=== PATIENT | female | born 1955 | race African-American/Black ===

== ENCOUNTER 2018-09-11 08:39 | Inpatient (IN) | payer OTHER ==
[2018-09-11] MEDS: HYDROCODONE/APAP (5/325) TAB PO (09:15)
[2018-09-11] MEDS: ONDANSETRON 4 MG INJ IV (10:58)
[2018-09-11] MEDS: morphine 4 MG/ML VIAL IV ×3 (10:58→23:39)
[2018-09-11 11:03] LABS: ADD MAN DIFF? NO
[2018-09-11 11:04] LABS: WHITE BLOOD COUNT 12.2 10^3/ul (4.8-10.8)
[2018-09-11 11:04] LABS: BASOPHILS % 0.3 % (0.0-2.0); HEMATOCRIT 39.8 % (37.0-47.0); HEMOGLOBIN 12.5 g/dl (12.0-16.0); LYMPHOCYTES # 2.7 10^3/ul (0.8-2.9); LYMPHOCYTES % 21.9 % (15.0-51.0); MEAN CORPUSCULAR HEMOGLOBIN 25.8 pg (29.0-33.0); MEAN CORPUSCULAR HGB CONC 31.4 g/dl (32.0-37.0); MEAN CORPUSCULAR VOLUME 82.1 fl (82.0-101.0); MEAN PLATELET VOLUME 10.4 fl (7.4-10.4); MONOCYTE # 0.7 10^3/ul (0.3-0.9); MONOCYTES % 6.1 % (0.0-11.0); NEUTROPHIL # 8.7 10^3/ul (1.6-7.5); NEUTROPHILS % 71.1 % (39.0-77.0); PLATELET COUNT 346 10^3/UL (140-415); RED BLOOD COUNT 4.85 10^6/ul (4.20-5.40)
[2018-09-11 11:26] LABS: INR 0.99; PROTIME 13.2 Sec (11.9-14.9)
[2018-09-11 11:27] LABS: PARTIAL THROMBOPLASTIN TIME 26.4 Sec (23.0-35.0)
[2018-09-11 11:29] LABS: ANION GAP 13 (5-13); BLOOD UREA NITROGEN 17 mg/dl (7-20); CALCIUM 10.1 mg/dl (8.4-10.2); CARBON DIOXIDE 25 mmol/L (21-31); CHLORIDE 104 mmol/L (97-110); CREATININE 0.64 mg/dl (0.44-1.00); Estimated GFR > 60 mL/min (>60); GLUCOSE 374 mg/dl (70-220); POTASSIUM 4.3 mmol/L (3.5-5.1); SODIUM 142 mmol/L (135-144)
[2018-09-11 11:40] LABS: TROPONIN-I < 0.012 ng/ml (0.000-0.120)
[2018-09-11] MEDS: HYDROmorphONE 2 MG/ML SYG IV (12:08)
[2018-09-11] MEDS: SOD CHLORIDE 0.9% 1,000 ML IV (12:09)
[2018-09-11] MEDS ORDERED: ONDANSETRON 4 MG INJ IV (13:30)
[2018-09-11] MEDS ORDERED: ACETAMINOPHEN 325 MG TAB PO (13:30)
[2018-09-11] MEDS: INSULIN LISPRO 100 UNIT/ML VIAL SC (14:33)
[2018-09-11] MEDS ORDERED: SOD CHLORIDE 0.9% 1,000 ML IV (16:30)
[2018-09-11] MEDS: INSULIN ASPART [NOVOLOG] 3 ML PEN SC (17:46)
[2018-09-11 19:41] LABS: TROPONIN-I < 0.012 ng/ml (0.000-0.120)
[2018-09-11] MEDS: BENAZEPRIL 20 MG TAB PO (20:21)
[2018-09-11] MEDS: hydrALAzine 20 MG INJ IV (20:22)
[2018-09-11] MEDS: traMADol 50 MG TAB PO (20:22)
[2018-09-12] MEDS: hydrALAzine 20 MG INJ IV ×2 (00:02→15:59)
[2018-09-12] MEDS: ACCU-CHEK XX (01:23)
[2018-09-12] MEDS: INSULIN ASPART [NOVOLOG] 3 ML PEN SC ×4 (01:23→17:36)
[2018-09-12 01:35] LABS: TROPONIN-I < 0.012 ng/ml (0.000-0.120)
[2018-09-12] MEDS: PANTOPRAZOLE 40 MG INJ IV (06:23)
[2018-09-12] MEDS: BENAZEPRIL 20 MG TAB PO ×2 (08:25→20:29)
[2018-09-12] MEDS: DEXTROSE 5%-0.45% NACL 1,000 ML IV (08:25)
[2018-09-12] MEDS: morphine 4 MG/ML VIAL IV (08:29)
[2018-09-12 09:11] LABS: ADD MAN DIFF? NO
[2018-09-12 09:44] LABS: ANION GAP 13 (5-13); BLOOD UREA NITROGEN 17 mg/dl (7-20); CALCIUM 9.8 mg/dl (8.4-10.2); CARBON DIOXIDE 24 mmol/L (21-31); CHLORIDE 105 mmol/L (97-110); CREATININE 0.61 mg/dl (0.44-1.00); Estimated GFR > 60 mL/min (>60); GLUCOSE 304 mg/dl (70-220); POTASSIUM 4.2 mmol/L (3.5-5.1); SODIUM 142 mmol/L (135-144)
[2018-09-12 09:56] LABS: TROPONIN-I 0.056 ng/ml (0.000-0.120)
[2018-09-12] MEDS ORDERED: DEXTROSE 50% 50 ML SYRINGE IV ×2 (10:30)
[2018-09-12] MEDS ORDERED: GLUCOSE GEL 15 GRAM TUBE BUCCAL (10:30)
[2018-09-12] MEDS ORDERED: GLUCAGON 1 MG INJ IM (10:30)
[2018-09-12] MEDS ORDERED: GLUCOSE GEL 15 GRAM TUBE PO ×2 (10:30)
[2018-09-12] MEDS: OXYCODONE/ACETAMINOPHEN (5/325) TAB PO ×3 (10:37→20:30)
[2018-09-12 11:01] LABS: BASOPHILS % 0.3 % (0.0-2.0); EOSINOPHILS % 0.2 % (0.0-7.0); HEMATOCRIT 36.8 % (37.0-47.0); HEMOGLOBIN 11.5 g/dl (12.0-16.0); LYMPHOCYTES # 2.2 10^3/ul (0.8-2.9); LYMPHOCYTES % 20.3 % (15.0-51.0); MEAN CORPUSCULAR HEMOGLOBIN 26.1 pg (29.0-33.0); MEAN CORPUSCULAR HGB CONC 31.3 g/dl (32.0-37.0); MEAN CORPUSCULAR VOLUME 83.4 fl (82.0-101.0); MEAN PLATELET VOLUME 10.2 fl (7.4-10.4); MONOCYTE # 0.9 10^3/ul (0.3-0.9); MONOCYTES % 7.7 % (0.0-11.0); NEUTROPHIL # 7.8 10^3/ul (1.6-7.5); NEUTROPHILS % 71.1 % (39.0-77.0); PLATELET COUNT 283 10^3/UL (140-415); RED BLOOD COUNT 4.41 10^6/ul (4.20-5.40); RED CELL DISTRIBUTION WIDTH 13.2 % (11.5-14.5)
[2018-09-12] MEDS: LINAGLIPTIN 5 MG TABLET PO (11:41)
[2018-09-12 11:53] LABS: HEMOGLOBIN A1C 12.5 % (0-5.9)
[2018-09-12 13:15] LABS: CHOLESTEROL 150 mg/dl (100-200)
[2018-09-12 13:15] LABS: CHOL/HDL RATIO 3.4 RATIO; HDL CHOLESTEROL 44 mg/dl (35-98); LDL CHOLESTEROL,CALCULATED 85 mg/dl; TRIGLYCERIDES 103 mg/dl (0-149)
[2018-09-12] MEDS: INSULIN DETEMIR [LEVEMIR] (100 UNITS/ML) SYG SC (20:51)
[2018-09-13] MEDS: INSULIN ASPART [NOVOLOG] 3 ML PEN SC ×4 (00:03→17:16)
[2018-09-13] MEDS: ACCU-CHEK XX (02:00)
[2018-09-13] MEDS: OXYCODONE/ACETAMINOPHEN (5/325) TAB PO ×6 (02:07→23:59)
[2018-09-13] MEDS: PANTOPRAZOLE 40 MG INJ IV (06:25)
[2018-09-13] MEDS: LINAGLIPTIN 5 MG TABLET PO (08:19)
[2018-09-13] MEDS: NIFEdipine (XL) 30 MG TAB PO (08:19)
[2018-09-13] MEDS: BENAZEPRIL 20 MG TAB PO ×2 (08:19→20:10)
[2018-09-13] MEDS ORDERED: BENAZEPRIL 20 MG TAB PO (10:00)
[2018-09-13 10:20] LABS: WHITE BLOOD COUNT 10.5 10^3/ul (4.8-10.8)
[2018-09-13 10:20] LABS: ADD MAN DIFF? NO; BASOPHILS % 0.4 % (0.0-2.0); EOSINOPHILS # 0.1 10^3/ul (0.0-0.5); EOSINOPHILS % 0.6 % (0.0-7.0); HEMATOCRIT 36.8 % (37.0-47.0); HEMOGLOBIN 11.5 g/dl (12.0-16.0); LYMPHOCYTES # 2.2 10^3/ul (0.8-2.9); LYMPHOCYTES % 20.5 % (15.0-51.0); MEAN CORPUSCULAR HGB CONC 31.3 g/dl (32.0-37.0); MEAN CORPUSCULAR VOLUME 83.1 fl (82.0-101.0); MEAN PLATELET VOLUME 10.6 fl (7.4-10.4); MONOCYTE # 0.8 10^3/ul (0.3-0.9); NEUTROPHIL # 7.3 10^3/ul (1.6-7.5); NEUTROPHILS % 70.1 % (39.0-77.0); PLATELET COUNT 313 10^3/UL (140-415); RED BLOOD COUNT 4.43 10^6/ul (4.20-5.40); RED CELL DISTRIBUTION WIDTH 13.1 % (11.5-14.5)
[2018-09-13 10:40] LABS: ANION GAP 12 (5-13); BLOOD UREA NITROGEN 17 mg/dl (7-20); CALCIUM 9.6 mg/dl (8.4-10.2); CARBON DIOXIDE 30 mmol/L (21-31); CHLORIDE 99 mmol/L (97-110); CREATININE 0.68 mg/dl (0.44-1.00); Estimated GFR > 60 mL/min (>60); GLUCOSE 249 mg/dl (70-220); POTASSIUM 4.1 mmol/L (3.5-5.1); SODIUM 141 mmol/L (135-144)
[2018-09-13] MEDS: LUBIPROSTONE 8 MCG CAPSULE PO ×2 (11:02→20:11)
[2018-09-13] MEDS: MAGNESIUM CITRATE 300 ML BTL PO (11:02)
[2018-09-13] MEDS: INSULIN DETEMIR [LEVEMIR] (100 UNITS/ML) SYG SC (20:20)
[2018-09-13] MEDS: DEXTROSE 5%-0.45% NACL 1,000 ML IV (23:59)
[2018-09-14] MEDS: INSULIN ASPART [NOVOLOG] 3 ML PEN SC ×4 (00:15→17:19)
[2018-09-14] MEDS: ACCU-CHEK XX (02:00)
[2018-09-14] MEDS: morphine 4 MG/ML VIAL IV (02:39)
[2018-09-14] MEDS: hydrALAzine 20 MG INJ IV (04:16)
[2018-09-14] MEDS: PANTOPRAZOLE (EC) 40 MG TAB PO (05:49)
[2018-09-14] MEDS ORDERED: SEVOFLURANE 15 MIN (07:00)
[2018-09-14] MEDS ORDERED: MIDAZOLAM 1 MG/ML 2 ML INJ (07:26)
[2018-09-14] MEDS ORDERED: SUCCINYLCHOLINE CHLORIDE 100 MG/5 ML SYG IV (07:37)
[2018-09-14] MEDS ORDERED: LIDOCAINE 2% (SDV) 5 ML INJ (07:37)
[2018-09-14] MEDS ORDERED: GLYCOPYRROLATE 0.4 MG INJ ×3 (07:37→12:29)
[2018-09-14] MEDS ORDERED: MEPERIDINE 100 MG INJ (07:37)
[2018-09-14] MEDS ORDERED: NEOSTIGMINE 3 MG/3 ML SYRINGE ×2 (07:37→12:29)
[2018-09-14] MEDS ORDERED: PROPOFOL 20 ML (07:37)
[2018-09-14] MEDS ORDERED: ROCURONIUM 50 MG INJ ×2 (07:37→12:29)
[2018-09-14] MEDS: POLYMYXIN/BACITRACIN 1L IRRIG IRR (10:03)
[2018-09-14] MEDS ORDERED: FENTAnyl 50 MCG/ML VIAL (11:43)
[2018-09-14] MEDS ORDERED: ONDANSETRON 4 MG INJ (12:29)
[2018-09-14] MEDS ORDERED: METOCLOPRAMIDE 10 MG INJ (12:29)
[2018-09-14] MEDS ORDERED: METOCLOPRAMIDE 10 MG INJ IV (13:00)
[2018-09-14] MEDS ORDERED: OXYCODONE/ACETAMINOPHEN (5/325) TAB PO ×2 (13:00)
[2018-09-14] MEDS ORDERED: DIPHENHYDRAMINE 50 MG INJ IV (13:00)
[2018-09-14] MEDS ORDERED: ONDANSETRON 4 MG INJ IV ×2 (13:00→16:30)
[2018-09-14] MEDS ORDERED: HYDROmorphONE 1 MG/5 ML IV SYRINGE IV ×2 (13:00)
[2018-09-14] MEDS ORDERED: MIDAZOLAM 1 MG/ML 2 ML INJ IV (13:00)
[2018-09-14] MEDS ORDERED: FENTAnyl 50 MCG/ML VIAL IV ×2 (13:00)
[2018-09-14] MEDS ORDERED: EPHEDrine SULFATE 50 MG/5 ML SYG IV (13:00)
[2018-09-14] MEDS ORDERED: MEPERIDINE 25 MG INJ IV (13:00)
[2018-09-14] MEDS ORDERED: hydrALAzine 20 MG INJ IV (13:00)
[2018-09-14] MEDS: CEFAZOLIN 2 GM/50 ML (PMX) 50 ML IVPB ×2 (14:00→21:07)
[2018-09-14] MEDS: FENTAnyl 50 MCG/ML VIAL IV ×2 (14:20→14:44)
[2018-09-14] MEDS: LABETALOL HCL 20MG INJ IV ×2 (14:23→15:01)
[2018-09-14 14:24] LABS: ADD UMIC YES; UR ASCORBIC ACID NEGATIVE (NEGATIVE); UR BACTERIA MODERATE /HPF (NONE SEEN); UR BILIRUBIN (Dip) NEGATIVE (NEGATIVE); UR BLOOD (Dip) 1+ mg/dL (NEGATIVE); UR CLARITY CLOUDY (CLEAR); UR COLOR AMBER (YELLOW); UR GLUCOSE (Dip) 2+ mg/dL (NEGATIVE); UR KETONES (Dip) TRACE mg/dL (NEGATIVE); UR LEUKOCYTE ESTERASE (Dip) 2+ Leu/ul (NEGATIVE); UR MUCUS MANY /HPF (NONE SEEN); UR NITRITE (Dip) NEGATIVE (NEGATIVE); UR RBC 32 /HPF (0-5); UR SQUAMOUS EPITHELIAL CELL MODERATE /HPF (FEW); UR TOTAL PROTEIN (Dip) 2+ mg/dl (NEGATIVE); UR UROBILINOGEN (Dip) NEGATIVE (NEGATIVE); UR WBC 155 /HPF (0-5)
[2018-09-14] MEDS: HYDROmorphONE 1 MG/5 ML IV SYRINGE IV (15:15)
[2018-09-14] MEDS ORDERED: oxyCODONE 5 MG TAB PO ×2 (16:30)
[2018-09-14] MEDS: LUBIPROSTONE 8 MCG CAPSULE PO ×2 (16:33→21:04)
[2018-09-14] MEDS: NIFEdipine (XL) 30 MG TAB PO (16:34)
[2018-09-14] MEDS: LINAGLIPTIN 5 MG TABLET PO (16:34)
[2018-09-14] MEDS: BENAZEPRIL 20 MG TAB PO ×2 (16:34→21:05)
[2018-09-14] MEDS: HEPARIN 5,000 UNIT/1 ML VIAL SC ×2 (16:51→21:18)
[2018-09-14] MEDS: HYDROmorphONE 1 MG/ML SYG IV (18:00)
[2018-09-14] MEDS: ACETAMINOPHEN 500 MG TAB PO (21:04)
[2018-09-14] MEDS: INSULIN DETEMIR [LEVEMIR] (100 UNITS/ML) SYG SC (21:17)
[2018-09-14] MEDS: oxyCODONE 15 MG TAB PO (21:34)
[2018-09-15] MEDS: INSULIN ASPART [NOVOLOG] 3 ML PEN SC ×5 (01:10→23:53)
[2018-09-15] MEDS: oxyCODONE 15 MG TAB PO ×3 (01:24→20:10)
[2018-09-15] MEDS: ACCU-CHEK XX (02:00)
[2018-09-15] MEDS: HYDROmorphONE 1 MG/ML SYG IV ×2 (03:35→15:35)
[2018-09-15 05:29] LABS: ADD MAN DIFF? NO; BASOPHILS % 0.2 % (0.0-2.0); EOSINOPHILS % 0.1 % (0.0-7.0); HEMATOCRIT 28.8 % (37.0-47.0); HEMOGLOBIN 9.1 g/dl (12.0-16.0); LYMPHOCYTES # 1.5 10^3/ul (0.8-2.9); LYMPHOCYTES % 10.9 % (15.0-51.0); MEAN CORPUSCULAR HEMOGLOBIN 26.2 pg (29.0-33.0); MEAN CORPUSCULAR HGB CONC 31.6 g/dl (32.0-37.0); MEAN PLATELET VOLUME 10.1 fl (7.4-10.4); MONOCYTE # 1.3 10^3/ul (0.3-0.9); MONOCYTES % 9.6 % (0.0-11.0); NEUTROPHIL # 10.7 10^3/ul (1.6-7.5); NEUTROPHILS % 78.9 % (39.0-77.0); PLATELET COUNT 268 10^3/UL (140-415); RED BLOOD COUNT 3.47 10^6/ul (4.20-5.40); RED CELL DISTRIBUTION WIDTH 13.2 % (11.5-14.5)
[2018-09-15 05:29] LABS: WHITE BLOOD COUNT 13.5 10^3/ul (4.8-10.8)
[2018-09-15] MEDS: PANTOPRAZOLE (EC) 40 MG TAB PO (06:01)
[2018-09-15] MEDS: CEFAZOLIN 2 GM/50 ML (PMX) 50 ML IVPB (06:02)
[2018-09-15 06:04] LABS: ANION GAP 10 (5-13); BLOOD UREA NITROGEN 16 mg/dl (7-20); CALCIUM 8.8 mg/dl (8.4-10.2); CARBON DIOXIDE 26 mmol/L (21-31); CHLORIDE 103 mmol/L (97-110); CREATININE 0.57 mg/dl (0.44-1.00); Estimated GFR > 60 mL/min (>60); GLUCOSE 254 mg/dl (70-220); POTASSIUM 4.6 mmol/L (3.5-5.1); SODIUM 139 mmol/L (135-144)
[2018-09-15] MEDS: HEPARIN 5,000 UNIT/1 ML VIAL SC ×3 (06:11→20:25)
[2018-09-15] MEDS ORDERED: VITAMIN A & D 5 GM OINT PACKET TOP (06:13)
[2018-09-15] MEDS: ACETAMINOPHEN 500 MG TAB PO ×3 (08:07→20:09)
[2018-09-15] MEDS: LUBIPROSTONE 8 MCG CAPSULE PO ×2 (08:07→20:10)
[2018-09-15] MEDS: NIFEdipine (XL) 30 MG TAB PO (08:08)
[2018-09-15] MEDS: BENAZEPRIL 20 MG TAB PO ×2 (08:08→20:10)
[2018-09-15] MEDS: LINAGLIPTIN 5 MG TABLET PO (08:09)
[2018-09-15] MEDS: INSULIN DETEMIR [LEVEMIR] (100 UNITS/ML) SYG SC (20:26)
[2018-09-16] MEDS: ACCU-CHEK XX (01:41)
[2018-09-16] MEDS: oxyCODONE 15 MG TAB PO (02:33)
[2018-09-16] MEDS: PANTOPRAZOLE (EC) 40 MG TAB PO (05:14)
[2018-09-16] MEDS: HEPARIN 5,000 UNIT/1 ML VIAL SC ×2 (05:16→13:58)
[2018-09-16 05:18] LABS: ADD MAN DIFF? NO
[2018-09-16] MEDS: INSULIN ASPART [NOVOLOG] 3 ML PEN SC ×2 (05:23→12:22)
[2018-09-16] MEDS: HYDROmorphONE 1 MG/ML SYG IV ×2 (05:24→11:30)
[2018-09-16 05:25] LABS: BASOPHILS % 0.3 % (0.0-2.0); EOSINOPHILS # 0.1 10^3/ul (0.0-0.5); EOSINOPHILS % 0.4 % (0.0-7.0); HEMOGLOBIN 8.2 g/dl (12.0-16.0); LYMPHOCYTES # 2.1 10^3/ul (0.8-2.9); LYMPHOCYTES % 16.9 % (15.0-51.0); MEAN CORPUSCULAR HEMOGLOBIN 26.2 pg (29.0-33.0); MEAN CORPUSCULAR HGB CONC 31.5 g/dl (32.0-37.0); MEAN CORPUSCULAR VOLUME 83.1 fl (82.0-101.0); MEAN PLATELET VOLUME 10.6 fl (7.4-10.4); MONOCYTE # 1.2 10^3/ul (0.3-0.9); MONOCYTES % 9.2 % (0.0-11.0); NEUTROPHIL # 9.2 10^3/ul (1.6-7.5); NEUTROPHILS % 72.7 % (39.0-77.0); PLATELET COUNT 268 10^3/UL (140-415); RED BLOOD COUNT 3.13 10^6/ul (4.20-5.40); RED CELL DISTRIBUTION WIDTH 13.2 % (11.5-14.5)
[2018-09-16 05:25] LABS: WHITE BLOOD COUNT 12.6 10^3/ul (4.8-10.8)
[2018-09-16 05:47] LABS: ANION GAP 9 (5-13); BLOOD UREA NITROGEN 11 mg/dl (7-20); CALCIUM 8.5 mg/dl (8.4-10.2); CARBON DIOXIDE 30 mmol/L (21-31); CHLORIDE 100 mmol/L (97-110); CREATININE 0.61 mg/dl (0.44-1.00); Estimated GFR > 60 mL/min (>60); GLUCOSE 175 mg/dl (70-220); POTASSIUM 4.4 mmol/L (3.5-5.1); SODIUM 139 mmol/L (135-144)
[2018-09-16] MEDS: LUBIPROSTONE 8 MCG CAPSULE PO (09:00)
[2018-09-16] MEDS: NIFEdipine (XL) 60 MG TAB PO (09:17)
[2018-09-16] MEDS: BENAZEPRIL 20 MG TAB PO (09:18)
[2018-09-16] MEDS: LINAGLIPTIN 5 MG TABLET PO (09:18)
[2018-09-16] MEDS: ACETAMINOPHEN 500 MG TAB PO ×2 (09:19→13:51)
== END 2018-09-16 17:05 | disposition home health service (06) | DRG 494 ==
LOC: FTE 08:39 → MS1 13:16 → 6WM 19:10
PROC: 0PSG04Z Reposition Left Humeral Shaft with Internal Fixation Device, Open Approach (ICD-10-PCS; principal; 2018-09-14 07:30)
PROC: 0PHD04Z Insertion of Internal Fixation Device into Left Humeral Head, Open Approach (ICD-10-PCS; 2018-09-14 07:30)
DX: S42.222A 2-part displaced fracture of surgical neck of left humerus, initial encounter for closed fracture (principal); S42.255A Nondisplaced fracture of greater tuberosity of left humerus, initial encounter for closed fracture; E66.9 Obesity, unspecified; I10 Essential (primary) hypertension; E11.65 Type 2 diabetes mellitus with hyperglycemia; M17.0 Bilateral primary osteoarthritis of knee; W01.0XXA Fall on same level from slipping, tripping and stumbling without subsequent striking against object, initial encounter; Y92.018 Other place in single-family (private) house as the place of occurrence of the external cause; K43.9 Ventral hernia without obstruction or gangrene; Z68.35 Body mass index [BMI] 35.0-35.9, adult
CPT/HCPCS: 36415; 71045; 73030; 73060; 73200; 80048; 80061; 81001; 82962; 83036; 84484; 85025; 85610; 85730; 90686; 93005; 93306; 93971; 96361; 96374; 96375; 97116; 97162; 97530; 99285-25